=== PATIENT | male | born 1960 | race Caucasian/White ===

== ENCOUNTER → 2018-01-23 | Outpatient (CLI) | payer OTHER ==
--- NOTE | 2018-01-23 12:10 | FL ---
EXAMINATION: Cervical and Thoracic Esophagram DATE OF EXAM: 01/23/2018 CLINICAL INDICATION: 57-year-old male with dysphasia and coughing episodes. COMPARISON: None Total Fluoroscopy Time: 1 minute 8 seconds Total images: 22 FINDINGS: The swallowing mechanism is normal and hypopharyngeal anatomy is preserved. Aspiration is not encount ered during the course of this exam. The cervical and thoracic portions have a normal course and caliber with mild tertiary peristaltic co ntractions. The mucosa is normal and no persistent filling defect is encountered. There is a small hiatal hernia. Gastroesophageal reflux could not be elicited on this exam. IMPRESSION: 1. Small sliding hiatal hernia. 2. No aspiration seen during the course of this exam. If there is clinical concern for aspiration, co nsider speech pathology consultation.
== END | disposition home or self-care (01) ==
LOC: RADFLWHC 08:48
PROVIDERS: ATTEND Family Medicine
DX: K44.9 Diaphragmatic hernia without obstruction or gangrene (principal); T17.308A Unspecified foreign body in larynx causing other injury, initial encounter; T17.908A Unspecified foreign body in respiratory tract, part unspecified causing other injury, initial encounter
CPT/HCPCS: 74210

== ENCOUNTER → 2018-02-05 | Outpatient (CLI) | payer OTHER ==
--- NOTE | 2018-02-05 12:45 | FL ---
Modified barium swallow. HISTORY: Dysphagia. Modified barium swallow was performed with the department of speech pathology. The patient was prese nted with various consistencies of barium. There is no evidence for aspiration or penetration. Full report is to follow from the department of speech pathology. Impression: Normal study.
== END | disposition home or self-care (01) ==
LOC: RADFLMAIN 10:48
PROVIDERS: ATTEND Family Medicine
DX: R13.10 Dysphagia, unspecified (principal)
CPT/HCPCS: 74230

== ENCOUNTER 2018-12-03 08:07 | Day surgery (SDC) | payer OTHER ==
[2018-11-28 11:36] VITALS: BMI 33.0
[~2018-12-03 08:07] MED LIST: LACTATED RINGERS 1,000 ML IV SCH; LIDOCAINE 1% 20 ML VIAL (10MG/ML) FOR IV START INTRADERMA PRN
[2018-12-03 08:24] VITALS: RESP 16; TEMP 97.5
[2018-12-03] MEDS ORDERED: PROPOFOL 10 MG/ML 20 ML VIAL IV ONE (08:38)
[2018-12-03] MEDS ORDERED: fentaNYL (PF) 50 MCG/ML 2 ML AMP ONE (08:38)
[2018-12-03] MEDS ORDERED: MIDAZOLAM 2 MG/2 ML VIAL ONE (08:38)
--- NOTE | 2018-12-03 08:44 | P.GSHP ---
History of Present Illness H&P Date: 12/03/18 Chief Complaint: History of right colon cancer This a 58-year-old male who presents today for colonoscopy. Patient history of right colon cancer. He had surgery in 2009. Past Medical History Past Medical History: Atrial Fibrillation, Asthma, Cancer, GERD/Reflux, Hypertension, Sleep Apnea/CPAP/BIPAP Additional Past Medical History / Comment(s): COLON CANCER HX, chemo 2008. hx gout, neuropathy keshia feet, back pain DDD, USES CPAP History of Any Multi-Drug Resistant Organisms: None Reported Past Surgical History: Bowel Resection, Cardiac Ablation, Orthopedic Surgery Additional Past Surgical History / Comment(s): RT COLECTOMY, RT HYDROCELE REMOVED. PLASTIC SX NOSE, ORIF LT ANKLE with screw. hx PORT A CATH, now removed Past Anesthesia/Blood Transfusion Reactions: No Reported Reaction Smoking Status: Never smoker - Past Family History Father Family Medical History: Cancer, Prostate Disorder Mother Family Medical History: Cancer Medications and Allergies Home Medications Medication Instructions Recorded Confirmed Type Allopurinol 300 mg PO HS 06/05/16 12/03/18 History Aspirin 325 mg PO HS 06/05/16 11/28/18 History Diazepam [Valium] 5 mg PO BID PRN 06/05/16 12/03/18 History Hydrocodone/Acetaminophen [[place] 1 each PO BID 06/05/16 12/03/18 History 10-325] Lansoprazole 30 mg PO HS 06/05/16 12/03/18 History Metoprolol Succinate (ER) [Toprol 12.5 mg PO HS 06/05/16 12/03/18 History Xl] Albuterol Nebulized [Ventolin 2.5 mg INHALATION Q6H PRN 11/28/18 12/03/18 History Nebulized] Beclomethasone Dipropionate [Qvar 1 puff INHALATION DAILY 11/28/18 12/03/18 History 40 mcg Redihaler] Fluticasone/Salmeterol 1 puff INHALATION DAILY 11/28/18 12/03/18 History [Fluticasone-Salmeterol 232-14] Allergies Allergy/AdvReac Type Severity Reaction Status Date / Time No Known Allergies Allergy Verified 11/28/18 11:24 Surgical - Exam Vital Signs Temp Pulse Resp BP Pulse Ox 97.5 F L 57 L 16 134/83 98 12/03/18 08:23 12/03/18 08:23 12/03/18 08:23 12/03/18 08:23 12/03/18 08:23 - General well developed, well nourished, no distress - Eyes PERRL - ENT normal pinna - Neck no masses - Respiratory normal expansion - Cardiovascular Rhythm: regular - Abdomen Abdomen: soft, non tender Assessment and Plan Assessment: History of right colon cancer. We'll perform colonoscopy.
--- NOTE | 2018-12-03 09:00 | P.OP ---
Date of Procedure: 12/03/18 Preoperative Diagnosis: History of right colon cancer Postoperative Diagnosis: Diverticulosis Procedure(s) Performed: Colonoscopy Anesthesia: MAC Surgeon: Clyde Michel Pathology: none sent Condition: stable Disposition: PACU Description of Procedure: The patient's placed on the endoscopy table in the lateral position. He received IV sedation. Digital rectal exam was performed which revealed no abnormalities. The flexible colonoscope was then placed patient anus passed throughout the entire colon. The patient had a previous right collecting. The ileocolonic anastomosis visualized. The transverse colon, descending colon and sigmoid colon were examined. There was diverticular changes in the descending and sigmoid colon. No polyps or tumors were seen. The scope was then brought back the rectum and this appeared normal. Scope was withdrawn for patient.
[2018-12-03 09:15] VITALS: BP 152/93; PULSE 98
== END 2018-12-03 09:30 | disposition home or self-care (01) ==
LOC: ORWHC2ENDO 08:07
PROVIDERS: ATTEND Surgery
DX: Z12.11 Encounter for screening for malignant neoplasm of colon (principal); K57.30 Diverticulosis of large intestine without perforation or abscess without bleeding; Z85.038 Personal history of other malignant neoplasm of large intestine; Z90.49 Acquired absence of other specified parts of digestive tract; K21.9 Gastro-esophageal reflux disease without esophagitis; I10 Essential (primary) hypertension; G62.9 Polyneuropathy, unspecified; M10.9 Gout, unspecified; G89.29 Other chronic pain; J44.9 Chronic obstructive pulmonary disease, unspecified; G47.33 Obstructive sleep apnea (adult) (pediatric); Z99.89 Dependence on other enabling machines and devices; Z79.891 Long term (current) use of opiate analgesic; Z79.82 Long term (current) use of aspirin; Z79.51 Long term (current) use of inhaled steroids; Z79.899 Other long term (current) drug therapy; Z92.21 Personal history of antineoplastic chemotherapy
CPT/HCPCS: J2250; J3010; J2704; G0105; 45378

== ENCOUNTER → 2023-12-17 | Outpatient (CLI) | payer OTHER ==
[2023-12-17 15:07] LABS: Basophils # (A) 0.1 k/uL (0-0.2); Basophils % (A) 1 %; Eosinophils # (A) 0.3 k/uL (0-0.7); Eosinophils % (A) 4 %; HCT 47.9 % (39.0-53.0); Lymphocytes # (A) 2.1 k/uL (1.0-4.8); Lymphocytes % (A) 27 %; MCH 32.6 pg (25.0-35.0); MCHC 33.4 g/dL (31.0-37.0); MCV 97.6 fL (80.0-100.0); Monocytes # (A) 0.5 k/uL (0-1.0); Monocytes % (A) 7 %; Neutrophils # (A) 4.7 k/uL (1.3-7.7); Neutrophils % (A) 61 %; Platelet Count 199 k/uL (150-450); RBC 4.91 m/uL (4.30-5.90); RDW 13.2 % (11.5-15.5); WBC 7.8 k/uL (3.8-10.6)
[2023-12-17 15:29] LABS: Total Eosinophil Count 288 #EOS/uL (150-300)
[2023-12-18 03:03] LABS: Alternaria alternata IgE <0.10 kU/L; Aspergillus fumagatus IgE <0.10 kU/L; Birch IgE <0.10 kU/L; Cat Epith & Dander IgE <0.10 kU/L; Cladosporian herbarum IgE <0.10 kU/L; Cockroach IgE <0.10 kU/L; Dermato. farinae IgE <0.10 kU/L; Dog Dander IgE 0.16 kU/L; Elm IgE <0.10 kU/L; Maple (Box Elder) IgE <0.10 kU/L; Oak IgE <0.10 kU/L; Ragweed,Common IgE 0.15 kU/L; Red Top (Bentgrass) IgE <0.10 kU/L
== END | disposition home or self-care (01) ==
LOC: LABWHC1 14:25
PROVIDERS: ATTEND Internal Medicine Critical Care Medicine
DX: J45.909 Unspecified asthma, uncomplicated (principal)
CPT/HCPCS: 36415; 82785; 85008; 85025; 86003

== ENCOUNTER → 2023-12-24 | Outpatient (CLI) | payer OTHER ==
--- NOTE | 2023-12-24 18:26 | CT ---
EXAMINATION TYPE: CT ChestAbdPelvis w con DATE OF EXAM: 12/24/2023 COMPARISON: 04/10/2016 HISTORY: F/U on colon Ca. CT DLP: 1802.8 mGycm Automated exposure control for dose reduction was used. CONTRAST: CT scan of the chest, abdomen and pelvis is performed with Oral Contrast and with IV Contrast, patien t injected with 100 mL of Isovue 300. FINDINGS: CT chest: There is no suspicious lung mass or nodule. There is no abnormal airspace/consolidative density or abnormal interstitial density. There is no pleural effusion, pleural thickening or pneumothorax. The great vessels and chest are normal there is no mediastinal, hilar or axillary adenopathy. No focal osseous lesions are seen. CT abdomen and pelvis: Gallbladder is normal without distention, pericholecystic fluid, wall thickening or gallstone. There is no biliary ductal dilatation. There is no focal mass or organomegaly involving the liver, pancreas, spleen or adrenal glands.. There is no solid renal mass or hydronephrosis. There is no retroperitoneal adenopathy or hemorrhage in the caliber of the abdominal aorta is normal. The bowel loops are normal in caliber and there is no dilatation or obstruction. No inflammatory castellon ges identified in the bowel wall and mesentery. There is no free intracranial air or fluid. There is no pelvic mass or adenopathy. There is no free fluid within the pelvis. No focal osseous lesions are seen. Soft tissue the abdomen and pelvis are normal. IMPRESSION: No evidence of recurrent or metastatic disease.
== END | disposition home or self-care (01) ==
LOC: RADCTMAIN 14:22
PROVIDERS: ATTEND Internal Medicine Hematology & Oncology
DX: C18.9 Malignant neoplasm of colon, unspecified (principal); G62.0 Drug-induced polyneuropathy; T45.1X5A Adverse effect of antineoplastic and immunosuppressive drugs, initial encounter; D63.0 Anemia in neoplastic disease; G47.31 Primary central sleep apnea; E78.5 Hyperlipidemia, unspecified; K76.0 Fatty (change of) liver, not elsewhere classified; E83.119 Hemochromatosis, unspecified; I82.5Z9 Chronic embolism and thrombosis of unspecified deep veins of unspecified distal lower extremity; I10 Essential (primary) hypertension; Z71.3 Dietary counseling and surveillance
CPT/HCPCS: 71260; 74177; Q9967

== ENCOUNTER → 2024-01-09 | Outpatient (CLI) | payer OTHER ==
[2024-01-09 21:11] LABS: Blood Urea Nitrogen 13.9 mg/dL (9.0-27.0); Chloride 105 mmol/L (96-109); Chol/HDL Ratio 3.27 Ratio; Glucose 95 mg/dL (70-110); LDL Cholesterol,Calculated 127.1 mg/dL (0.0-131.0); Magnesium 2.4 mg/dL (1.5-2.4); Potassium 4.5 mmol/L (3.5-5.5); Sodium 143 mmol/L (135-145); VLDL Calculation 19.98 mg/dL (5.00-40.00)
[2024-01-09 21:12] LABS: ALT 30 U/L (10-49); AST 23 U/L (14-35); Albumin 4.8 g/dL (3.8-4.9); Albumin/Globulin Ratio 2.18 Ratio (1.60-3.17); Alkaline Phosphatase 53 U/L (41-126); Calcium 10.1 mg/dL (8.7-10.3); Carbon Dioxide 24.9 mmol/L (21.6-31.8); Globulin 2.2 g/dL (1.6-3.3); Total Bilirubin 0.7 mg/dL (0.3-1.2)
== END | disposition home or self-care (01) ==
LOC: LABWHC1 13:13
PROVIDERS: ATTEND Internal Medicine Clinical Cardiac Electrophysiology
DX: I48.0 Paroxysmal atrial fibrillation (principal); E78.5 Hyperlipidemia, unspecified
CPT/HCPCS: 36415; 80053; 80061; 83735; 84443

== ENCOUNTER 2024-01-27 14:07 | Inpatient (IN) | payer OTHER ==
--- NOTE | 2024-01-27 14:38 | ED ---
General Adult HPI - General Chief complaint: Shortness of Breath Stated complaint: SOB Time Seen by Provider: 01/27/24 14:15 Source: patient, RN notes reviewed, old records reviewed Mode of arrival: ambulatory Limitations: no limitations - History of Present Illness Initial comments: This is a 63-year-old male who presents to the emergency department complaining of difficulty breathing. Patient states he has a history of asthma. Patient states he gets so short of breath even walking to the bathroom that he cannot do anything. Patient denies chest pain or palpitation. Patient has any recent fever chills but he does complain of an increased cough recently. Patient denies any history of smoking. Patient denies any abdominal pain patient has n ausea vomiting or diarrhea. Patient is swelling to the legs or calf tenderness. - Related Data Home Medications Medication Instructions Recorded Confirmed Hydrocodone/Acetaminophen [[place] 1 tab PO QID 06/05/16 01/27/24 10-325] Metoprolol Succinate (ER) [Toprol 25 mg PO HS 06/05/16 01/27/24 Xl] allopurinoL [Allopurinol] 300 mg PO HS 06/05/16 01/27/24 Albuterol Nebulized [Ventolin 2.5 mg INHALATION RT-QID PRN 11/28/18 01/27/24 Nebulized] Albuterol Sulfate [Ventolin HFA] 1 - 2 puff INHALATION RT-QID PRN 01/27/24 01/27/24 Apixaban [Eliquis] 2.5 mg PO BID 01/27/24 01/27/24 Ergocalciferol (Vitamin D2) 1,250 mcg PO QMONTHLY 01/27/24 01/27/24 [Drisdol (50,000 Iu)] Fluticasone/Umeclidin/Vilanter 1 puff INHALATION RT-DAILY 01/27/24 01/27/24 [Trelegy Ellipta 200-62.5-25] Furosemide [Lasix] 40 mg PO DAILY 01/27/24 01/27/24 Potassium Chloride ER [K-Dur 20] 20 meq PO HS 01/27/24 01/27/24 Triamcinolone 0.1% Cream [Kenalog 1 applicatio TOPICAL HS 01/27/24 01/27/24 0.1% Cream] Allergies Allergy/AdvReac Type Severity Reaction Status Date / Time No Known Allergies Allergy Verified 01/27/24 15:37 Review of Systems ROS Statement: Those systems with pertinent positive or pertinent negative responses have been documented in the HPI. ROS Other: All systems not noted in ROS Statement are negative. Past Medical History Past Medical History: Atrial Fibrillation, Asthma, Cancer, GERD/Reflux, Hypertension, Sleep Apnea/CPAP/BIPAP Additional Past Medical History / Comment(s): COLON CANCER HX, chemo 2009. hx gout, neuropathy keshia feet, back pain DDD, USES CPAP History of Any Multi-Drug Resistant Organisms: None Reported Past Surgical History: Bowel Resection, Cardiac Ablation, Orthopedic Surgery Additional Past Surgical History / Comment(s): RT COLECTOMY, RT HYDROCELE REMOVE D. PLASTIC SX NOSE, ORIF LT ANKLE with screw. hx PORT A CATH, now removed Past Anesthesia/Blood Transfusion Reactions: No Reported Reaction Past Psychological History: No Psychological Hx Reported Past Alcohol Use History: None Reported Past Drug Use History: Marijuana - Past Family History Father Family Medical History: Cancer, Prostate Disorder Mother Family Medical History: Cancer General Exam - General Exam Comments Initial Comments: GENERAL: Patient is well-developed and well-nourished. Patient is nontoxic and well- hydrated and is in mild distress. ENT: Neck is soft and supple. No significant lymphadenopathy is noted. Oropharynx is clear. Moist mucous membranes. Neck has full range of motion without eliciting any pain. EYES: The sclera were anicteric and conjunctiva were pink and moist. Extraocular movements were intact and pupils were equal round and reactive to light. Eyelids were unremarkable. PULMONARY: Patient has expiratory wheezing diffusely CARDIOVASCULAR: Patient is tachycardic at 130 beats a minute and it is a regular. ABDOMEN: Soft and nontender with normal bowel sounds. SKIN: Skin is clear with no lesions or rashes and otherwise unremarkable. NEUROLOGIC: Patient is alert and oriented x3. Cranial nerves II through XII are grossly intact. Motor and sensory are also intact. Normal speech, volume and content. Symmetrical smile. MUSCULOSKELETAL: Normal extremities with adequate strength and full range of motion. LYMPHATICS: No significant lymphadenopathy is noted PSYCHIATRIC: Normal psychiatric evaluation. Limitations: no limitations Course Vital Signs 01/27/24 01/27/24 14:09 15:22 Temperature 98.3 F Pulse Rate 79 123 H Respiratory 26 H 22 Rate Blood Pressure 148/66 128/82 O2 Sat by Pulse 95 94 L Oximetry Medical Decision Making - Medical Decision Making EKG is interpreted by myself. EKG shows atrial fibrillation with rapid ventricular response at a rate of 140 bpm QRS is 136 QT interval 313 QTc is 395. Patient's EKG has a right bundle branch block. Was pt. sent in by a medical professional or institution (, [facility], [employer], urgent care, hospital, or jail...) When possible be specific @ -No Did you speak to anyone other than the patient for history (EMS, parent, family, police, friend...)? What history was obtained from this source @ -No Did you review nursing and triage notes (agree or disagree)? Why? @ -I reviewed and agree with nursing and triage notes Were old charts reviewed (outside hosp., previous admission, EMS record, old EKG, old radiological studies, urgent care reports/EKG's, jail records)? Report findings @ -No old charts were reviewed Differential Diagnosis? @ -Differential Dyspnea: Coronary syndrome, arrhythmia, tamponade, asthma, COPD, pulmonary embolism, pneumonia, pneumothorax, pulmonary effusion, anaphylaxis, diabetic ketoacidosis, flailed chest, pulmonary contusion, diaphragmatic rupture, anemia, neuromuscular, this is not meant to be an all-inclusive list. EKG interpreted by me (3pts min.). @ -As above X-rays interpreted by me (1pt min.). @ -Chest x-ray shows no acute abnormality CT interpreted by me (1pt min.). @ -None done U/S interpreted by me (1pt. min.). @ -None done What testing was considered but not performed or refused? (CT, X-rays, U/S, labs)? Why? @ -None What meds were considered but not given or refused? Why? @ -None Did you discuss the management of the patient with other professionals (professionals i.e. [facility] Medeiros, [employer], lab, RT, psych nurse, community mental health social worker, food and beverage checker, teacher, chairman president and chief executive officer, pillowcase turner)? Give summary @ -I spoke with Dr. Sanchez and he agreed to admit the patient admit the patient wrote admitting orders Was smoking cessation discussed for >3mins.? @ -No Was critical care preformed (if so, how long)? @ -35 minutes Were there social determinants of health that impacted care today? How? (Homelessness, low income, unemployed, alcoholism, drug addiction, transportation, low edu. Level, literacy, decrease access to med. care, prison, rehab)? @ -No Was there de-escalation of care discussed even if they declined (Discuss DNR or withdrawal of care, Hospice)? DNR status @ -No What co-morbidities impacted this encounter? (DM, HTN, Smoking, COPD, CAD, Cancer, CVA, ARF, Chemo, Hep., AIDS, mental health diagnosis, sleep apnea, morbid obesity)? @ -None Was patient admitted / discharged? Hospital course, mention meds given and route, prescriptions, significant lab abnormalities, going to OR and other pertinent info. @ -Patient was in A-fib with rapid ventricular response and I started the patient on Cardizem after Cardizem bolus. Patient also received steroids for the asthma exacerbation and received albuterol and Atrovent treatments. Patient continued to be wheezy and short of breath so patient will be admitted to Dr. Chavira and pulmonary will be consulted as well cardiology Undiagnosed new problem with uncertain prognosis? @ -No Drug Therapy requiring intensive monitoring for toxicity (Heparin, Nitro, Insulin, Cardizem)? @ -No Were any procedures done? @ -No Diagnosis/symptom? @ -A-fib with rapid ventricular response Acute, or Chronic, or Acute on Chronic? @ -Acute Uncomplicated (without systemic symptoms) or Complicated (systemic symptoms)? @ -Complicated Side effects of treatment? @ -No Exacerbation, Progression, or Severe Exacerbation? @ -No Poses a threat to life or bodily function? How? (Chest pain, [place], IA, pneumonia, PE, COPD, DKA, ARF, appy, cholecystitis, CVA, Diverticulitis, Homicidal, Suici rosy, threat to staff... and all critical care pts) @ -Yes this can lead to poor perfusion and endorgan dysfunction Diagnosis/symptom? @ -Asthma exacerbation Acute, or Chronic, or Acute on Chronic? @ -Acute Uncomplicated (without systemic symptoms) or Complicated (systemic symptoms)? @ -Complicated Side effects of treatment? @ - Exacerbation, Progression, or Severe Exacerbation] @ -Severe exacerbation Poses a threat to life or bodily function? @ -Yes this could lead to hypoxia and endorgan dysfunction - Lab Data Result diagrams: 01/27/24 14:36 01/27/24 14:36 Lab Results 01/27/24 01/27/24 01/27/24 Range/Units 14:36 14:36 14:36 WBC 12.2 H (3.8-10.6) k/uL RBC 4.78 (4.30-5.90) m/uL Hgb 16.4 (13.0-17.5) gm/dL Hct 46.0 (39.0-53.0) % MCV 96.2 (80.0-100.0) fL MCH 34.2 (25.0-35.0) pg MCHC 35.6 (31.0-37.0) g/dL RDW 13.5 (11.5-15.5) % Plt Count 195 (150-450) k/uL MPV 7.6 Neutrophils % 69 % Lymphocytes % 15 % Monocytes % 6 % Eosinophils % 8 % Basophils % 1 % Neutrophils # 8.5 H (1.3-7.7) k/uL Lymphocytes # 1.8 (1.0-4.8) k/uL Monocytes # 0.7 (0-1.0) k/uL Eosinophils # 0.9 H (0-0.7) k/uL Basophils # 0.1 (0-0.2) k/uL PT 10.9 (10.0-12.5) sec INR 1.0 (<1.2) APTT 24.9 (22.0-30.0) sec Sodium 140 (137-145) mmol/L Potassium 4.1 (3.5-5.1) mmol/L Chloride 106 (98-107) mmol/L Carbon Dioxide 21 L (22-30) mmol/L Anion Gap 13 mmol/L BUN 17 (9-20) mg/dL Creatinine 0.81 (0.66-1.25) mg/dL Est GFR (CKD-EPI)AfAm >90 (>60 ml/min/1.73 sqM) Est GFR (CKD-EPI)NonAf >90 (>60 ml/min/1.73 sqM) Glucose 97 (74-99) mg/dL Plasma Lactic Acid Srikanth (0.7-2.0) mmol/L Calcium 10.1 (8.4-10.2) mg/dL Magnesium 1.8 (1.6-2.3) mg/dL Total Bilirubin 1.1 (0.2-1.3) mg/dL AST 31 (17-59) U/L ALT 23 (4-49) U/L Alkaline Phosphatase 57 (38-126) U/L Troponin I (0.000-0.034) ng/mL NT-Pro-B Natriuret Pep pg/mL Total Protein 7.6 (6.3-8.2) g/dL Albumin 5.0 (3.5-5.0) g/dL 01/27/24 01/27/24 01/27/24 Range/Units 14:36 14:36 14:36 WBC (3.8-10.6) k/uL RBC (4.30-5.90) m/uL Hgb (13.0-17.5) gm/dL Hct (39.0-53.0) % MCV (80.0-100.0) fL MCH (25.0-35.0) pg MCHC (31.0-37.0) g/dL RDW (11.5-15.5) % Plt Count (150-450) k/uL MPV Neutrophils % % Lymphocytes % % Monocytes % % Eosinophils % % Basophils % % Neutrophils # (1.3-7.7) k/uL Lymphocytes # (1.0-4.8) k/uL Monocytes # (0-1.0) k/uL Eosinophils # (0-0.7) k/uL Basophils # (0-0.2) k/uL PT (10.0-12.5) sec INR (<1.2) APTT (22.0-30.0) sec Sodium (137-145) mmol/L Potassium (3.5-5.1) mmol/L Chloride (98-107) mmol/L Carbon Dioxide (22-30) mmol/L Anion Gap mmol/L BUN (9-20) mg/dL Creatinine (0.66-1.25) mg/dL Est GFR (CKD-EPI)AfAm (>60 ml/min/1.73 sqM) Est GFR (CKD-EPI)NonAf (>60 ml/min/1.73 sqM) Glucose (74-99) mg/dL Plasma Lactic Acid Srikanth 3.2 H* (0.7-2.0) mmol/L Calcium (8.4-10.2) mg/dL Magnesium (1.6-2.3) mg/dL Total Bilirubin (0.2-1.3) mg/dL AST (17-59) U/L ALT (4-49) U/L Alkaline Phosphatase (38-126) U/L Troponin I <0.012 (0.000-0.034) ng/mL NT-Pro-B Natriuret Pep 137 pg/mL Total Protein (6.3-8.2) g/dL Albumin (3.5-5.0) g/dL Critical Care Time Critical Care Time: Yes Total Critical Care Time: 30 Disposition Clinical Impression: Atrial fibrillation with rapid ventricular response, Exacerbation of asthma Disposition: ADMITTED IP TO THIS HOSP Referrals: Thomas Chavira MD [Primary Care Provider] - 1-2 days Time of Disposition: 15:58
[2024-01-27] MEDS: MAGNESIUM SULFATE-D5W PMX 1 GM in DEXTROSE/WATER 1 100ML.BAG IVPB ONE (14:46)
[2024-01-27] MEDS: methylPREDNISolone SOD SUCCI 125 MG/2 ML VIAL IV STA (14:47)
[2024-01-27 14:53] LABS: Basophils # (A) 0.1 k/uL (0-0.2); Basophils % (A) 1 %; Eosinophils # (A) 0.9 k/uL (0-0.7); Eosinophils % (A) 8 %; HGB 16.4 gm/dL (13.0-17.5); Lymphocytes # (A) 1.8 k/uL (1.0-4.8); Lymphocytes % (A) 15 %; MCH 34.2 pg (25.0-35.0); MCHC 35.6 g/dL (31.0-37.0); MCV 96.2 fL (80.0-100.0); Mean Platelet Volume 7.6; Monocytes # (A) 0.7 k/uL (0-1.0); Monocytes % (A) 6 %; Neutrophils # (A) 8.5 k/uL (1.3-7.7); Neutrophils % (A) 69 %; Platelet Count 195 k/uL (150-450); RBC 4.78 m/uL (4.30-5.90); RDW 13.5 % (11.5-15.5); WBC 12.2 k/uL (3.8-10.6)
[2024-01-27 14:54] LABS: Partial Thromboplastin Time 24.9 sec (22.0-30.0); Prothrombin Time 10.9 sec (10.0-12.5)
[2024-01-27 14:58] LABS: ALT 23 U/L (4-49); AST 31 U/L (17-59); African American GFR (CKD) >90 (>60 ml/min/1.73 sqM); Alkaline Phosphatase 57 U/L (38-126); Anion Gap 13 mmol/L; Blood Urea Nitrogen 17 mg/dL (9-20); Calcium 10.1 mg/dL (8.4-10.2); Carbon Dioxide 21 mmol/L (22-30); Chloride 106 mmol/L (98-107); Glucose 97 mg/dL (74-99); Magnesium 1.8 mg/dL (1.6-2.3); Non-African American GFR(CKD) >90 (>60 ml/min/1.73 sqM); Potassium 4.1 mmol/L (3.5-5.1); Sodium 140 mmol/L (137-145); Total Bilirubin 1.1 mg/dL (0.2-1.3); Total Protein 7.6 g/dL (6.3-8.2)
[2024-01-27] MEDS: DILTIAZEM DRIP BOLUS FROM BAG 1 MG SOLN IV ONE (15:19)
[2024-01-27] MEDS: DILTIAZEM 125 MG in SODIUM CHLORIDE 0.9% 100 ML IV SCH (15:19)
[2024-01-27] MEDS: ALBUTEROL NEBULIZED 2.5 MG/3 ML INHALATION STA (15:54)
[2024-01-27] MEDS: IPRATROPIUM 0.5 MG/2.5 ML NEBU INHALATION STA (15:54)
--- NOTE | 2024-01-27 15:57 | XR ---
EXAMINATION TYPE: XR chest 2V DATE OF EXAM: 01/27/2024 3:43 PM CLINICAL INDICATION:Male, 63 years old with history of difficulty breathing; [facility] COMPARISON: Chest radiographs from 11/15/2010 TECHNIQUE: XR chest 2V Frontal view of the chest. FINDINGS: Lungs/Pleura: There is flattening of the diaphragm with increased lucency of the lungs. No evidence o f pneumothorax, pleural effusion or focal consolidation. Pulmonary vascularity: Unremarkable. Heart/mediastinum: Cardiomediastinal silhouette is unremarkable. Musculoskeletal: No acute osseous pathology. IMPRESSION: 1. No acute cardiopulmonary disease process. 2. COPD changes.
[2024-01-27] MEDS ORDERED: NALOXONE 0.4 MG/ML 1 ML VIAL IVP PRN (15:59)
[2024-01-27] MEDS: IPRATROPIUM-ALBUTEROL 3 ML NEB INHALATION SCH (16:23)
[2024-01-27] MEDS: BENZONATATE 100 MG CAP PO STA (16:29)
[2024-01-27] MEDS: MORPHINE SULFATE 2 MG/ML SYRINGE IVP STA (16:30)
[2024-01-27] MEDS: HEPARIN SODIUM 1,000 UN/ML (10ML VL) IV ONE (17:00)
[2024-01-27] MEDS: HEPARIN SOD,PORK IN 0.45% NACL 25,000 UNIT in 0.45% NACL 1 250ML.BAG IV SCH (17:00)
[2024-01-27] MEDS: methylPREDNISolone SOD SUCCI 125 MG/2 ML VIAL IV SCH (19:58)
[2024-01-27] MEDS ORDERED: LIDOCAINE/EPINEPHR/TETRACAINE 5 ML BOTTLE TOPICAL ONE (22:28)
[2024-01-27] MEDS: HEPARIN SODIUM 1,000 UN/ML (10ML VL) IV PRN (23:23)
[2024-01-28] MEDS: IPRATROPIUM-ALBUTEROL 3 ML NEB INHALATION PRN (00:49)
[2024-01-28] MEDS: HYDROcodone/APAP 10-325MG 1 EACH TAB PO SCH (08:16)
[2024-01-28] MEDS: FUROSEMIDE 40 MG TAB PO SCH (08:16)
[2024-01-28] MEDS: METOPROLOL SUCCINATE (ER) 50 MG TAB.ER.24H PO SCH (08:19)
[2024-01-28] MEDS: APIXABAN 5 MG TAB PO SCH (08:19)
[2024-01-28] MEDS ORDERED: APIXABAN 2.5 MG TABLET PO SCH (09:00)
[2024-01-28] MEDS ORDERED: METOPROLOL SUCCINATE (ER) 25 MG TAB.ER.24H PO SCH ×2 (09:00→21:00)
[2024-01-28 10:21] LABS: T4, Free (Free Thyroxine) 1.77 ng/dL (0.78-2.19)
--- NOTE | 2024-01-28 13:27 | P.CRDCN ---
History of Present Illness Consult date: 01/28/24 Consult reason: atrial fibrillation (With RVR) History of present illness: This is a 63-year-old male patient of Dr. Connor with past medical history of typical atrial flutter status post ablation, paroxysmal atrial fibrillation, right bundle branch block, history of colon cancer now in remission, asthma. We have been asked to evaluate the patient for A-fib with RVR. Patient is seen today in the emergency center waiting for bed on the cardiac stepdown unit. Patient states that he has had problems with shortness of breath as well as exa cerbations and probably should have been in the hospital multiple times but has been resistant to coming into the hospital. His main concern is shortness of breath which is better now. No chest pain. Patient was started on heparin drip and Cardizem drip. His heart rate is controlled at 96, blood pressure 131/84. He remains in atrial fibrillation. EKG: Atrial fibrillation at 140 bpm. Patient is currently in atrial fibrillation with ventricular rate of 90s. Chest x-ray: No acute process. COPD. Laboratory studies: Troponin negative x 1 Home cardiac medications: Eliquis 2.5 mg twice daily, Lasix 40 mg daily, metoprolol succinate 25 mg daily, potassium chloride 20 mEq daily. Echocardiogram from 2012 reveals normal LV size and function. Trace mitral regurgitation, mild tricuspid regurgitation. Cardiolite stress test performed in 2012 was nondiagnostic secondary to baseline EKG abnormality. Normal myocardial perfusion imaging with fixed inferior wall defect and normal gated SPECT images consistent with soft tissue attenuation. No evidence of stress induced ischemia. Review Of Systems: At the time of my exam: CONSTITUTIONAL: Denies fever or chills. HEENT: Denies blurred vision, vision changes, or eye pain. Denies hemoptysis CARDIOVASCULAR: Denies chest pain. Denies orthopnea. Denies PND. Denies palpitations RESPIRATORY: Reports dyspnea on exertion, reports shortness of breath. GASTROINTESTINAL: Denies abdominal pain. Denies nausea or vomiting. HEMATOLOGIC: Denies bleeding disorders. GENITOURINARY: Denies any blood in urine. SKIN: Denies puritis. Denies rash. Physical examination: Gen: This is a 63-year-old male in no acute distress VS: reviewed HEENT: Head is atraumatic, normocephalic. Pupils equal, round. Sclerae is anicteric. NECK: Supple. No JVD. LUNGS: Clear to auscultation. No wheezes or rhonchi. No intercostal retractions. HEART: Irregular rate and rhythm. No murmur. ABDOMEN: Soft No tenderness. EXTREMITIES: No pedal edema. No calf tenderness. NEUROLOGICAL: Patient is awake, alert and oriented x3. Assessment: Paroxysmal atrial fibrillation presenting with RVR, currently rate controlled Asthma Atrial flutter typical status post ablation History of colon cancer in remission Plan: Resume patient's home cardiac medications Start patient back on Eliquis at 5 mg twice daily Increase metoprolol succinate to 50 mg daily Discontinue heparin drip and Cardizem drip Obtain 2-D echocardiogram and Doppler study to assess cardiac structure and func tion Further recommendations to follow based upon clinical course Thank you kindly for this consultation. Nurse practitioner note has been reviewed, I agree with documented findings and plan of care. Patient was seen and examined. Past Medical History Past Medical History: Atrial Fibrillation, Asthma, Cancer, GERD/Reflux, Hypertension, Sleep Apnea/CPAP/BIPAP Additional Past Medical History / Comment(s): COLON CANCER HX, chemo 2008. hx gout, neuropathy keshia feet, back pain DDD, USES CPAP History of Any Multi-Drug Resistant Organisms: None Reported Past Surgical History: Bowel Resection, Cardiac Ablation, Orthopedic Surgery Additional Past Surgical History / Comment(s): RT COLECTOMY, RT HYDROCELE REMOVED. PLASTIC SX NOSE, ORIF LT ANKLE with screw. hx PORT A CATH, now removed Past Anesthesia/Blood Transfusion Reactions: No Reported Reaction Past Psychological History: No Psychological Hx Reported Past Alcohol Use History: None Reported Past Drug Use History: Marijuana - Past Family History Father Family Medical History: Cancer, Prostate Disorder Mother Family Medical History: Cancer Medications and Allergies Home Medications Medication Instructions Recorded Confirmed Type Hydrocodone/Acetaminophen [[place] 1 tab PO QID 06/05/16 01/27/24 History 10-325] Metoprolol Succinate (ER) [Toprol 25 mg PO HS 06/05/16 01/27/24 History Xl] allopurinoL [Allopurinol] 300 mg PO HS 06/05/16 01/27/24 History Albuterol Nebulized [Ventolin 2.5 mg INHALATION RT-QID PRN 11/28/18 01/27/24 History Nebulized] Albuterol Sulfate [Ventolin HFA] 1 - 2 puff INHALATION RT-QID PRN 01/27/24 01/27/24 History Apixaban [Eliquis] 2.5 mg PO BID 01/27/24 01/27/24 History Ergocalciferol (Vitamin D2) 1,250 mcg PO QMONTHLY 01/27/24 01/27/24 History [Drisdol (50,000 Iu)] Fluticasone/Umeclidin/Vilanter 1 puff INHALATION RT-DAILY 01/27/24 01/27/24 History [Trelegy Ellipta 200-62.5-25] Furosemide [Lasix] 40 mg PO DAILY 01/27/24 01/27/24 History Potassium Chloride ER [K-Dur 20] 20 meq PO HS 01/27/24 01/27/24 History Triamcinolone 0.1% Cream [Kenalog 1 applicatio TOPICAL HS 01/27/24 01/27/24 History 0.1% Cream] Allergies Allergy/AdvReac Type Severity Reaction Status Date / Time No Known Allergies Allergy Verified 01/27/24 15:37 Physical Exam Vitals: Vital Signs Temp Pulse Resp BP Pulse Ox FiO2 01/28/24 06:00 96 24 131/84 97 01/28/24 04:15 21 01/28/24 03:00 102 H 24 148/89 97 01/28/24 01:00 116 H 01/28/24 00:50 115 H 01/27/24 23:47 21 01/27/24 23:00 104 H 18 154/99 97 01/27/24 21:30 100 01/27/24 21:15 112 H 01/27/24 21:00 96 01/27/24 20:45 93 01/27/24 20:30 101 H 01/27/24 19:32 95 01/27/24 19:30 93 01/27/24 19:22 95 01/27/24 17:38 144/102 01/27/24 16:28 130/92 01/27/24 16:06 112 H 01/27/24 15:55 106 H 01/27/24 15:22 123 H 22 128/82 94 L 01/27/24 14:09 98.3 F 79 26 H 148/66 95 Intake and Output 01/27/24 01/28/24 01/28/24 22:59 06:59 14:59 Intake Total 154.101 Balance 154.101 Intake: Intake, IV Titration 154.101 Amount Heparin Sod,Pork in 0.45% 154.101 NaCl 25,000 unit In 0.45 % NaCl 1 250ml.bag @ 9.8 UNITS/KG/HR 10.002 mls/hr IV .Q24H [facility] Rx#: [id number] Results 01/27/24 14:36 01/27/24 14:36 Cardiac Enzymes 01/27/24 01/27/24 Range/Units 14:36 14:36 AST 31 (17-59) U/L Troponin I <0.012 (0.000-0.034) ng/mL Coagulation 01/27/24 01/27/24 01/28/24 Range/Units 14:36 21:23 05:53 PT 10.9 (10.0-12.5) sec APTT 24.9 40.9 H 54.2 H (22.0-30.0) sec CBC 01/27/24 Range/Units 14:36 WBC 12.2 H (3.8-10.6) k/uL RBC 4.78 (4.30-5.90) m/uL Hgb 16.4 (13.0-17.5) gm/dL Hct 46.0 (39.0-53.0) % Plt Count 195 (150-450) k/uL Comprehensive Metabolic Panel 01/27/24 Range/Units 14:36 Sodium 140 (137-145) mmol/L Potassium 4.1 (3.5-5.1) mmol/L Chloride 106 (98-107) mmol/L Carbon Dioxide 21 L (22-30) mmol/L BUN 17 (9-20) mg/dL Creatinine 0.81 (0.66-1.25) mg/dL Glucose 97 (74-99) mg/dL Calcium 10.1 (8.4-10.2) mg/dL AST 31 (17-59) U/L ALT 23 (4-49) U/L Alkaline Phosphatase 57 (38-126) U/L Total Protein 7.6 (6.3-8.2) g/dL Albumin 5.0 (3.5-5.0) g/dL Current Medications Generic Name Dose Route Start Last Admin Trade Name Freq PRN Reason Stop Dose Admin Albuterol/Ipratropium 3 ml 01/27/24 16:00 01/27/24 19:22 Ipratropium-Albuterol 3 Ml Neb INHALATION 3 ml RT-QID JESSICA Administration Albuterol/Ipratropium 3 ml 01/27/24 15:59 01/28/24 00:49 Ipratropium-Albuterol 3 Ml Neb INHALATION 3 ml RT-Q2H PRN Administration Shortness Of Breath Or Wheezing Heparin Sodium (Porcine) 0 unit 01/27/24 23:02 01/27/24 23:23 Heparin Sodium 1,000 Un/Ml (10ml Vl) IV 2,550 unit PER PROTOCOL PRN Administration Low PTT Protocol Diltiazem HCl 125 mg/ Sodium 125 mls @ 5 mls/hr 01/27/24 15:00 01/27/24 15:19 Chloride IV 5 mg/hr .Q24H JESSICA 5 mls/hr Administration 5 MG/HR Heparin Sodium/Sodium Chloride 250 mls @ 10.002 mls/hr 01/27/24 16:15 01/28/24 06:53 25,000 unit/ Sodium Chloride IV 11.8 units/kg/hr .Q24H JESSICA 12.043 mls/hr Titration Protocol 9.8 UNITS/KG/HR Methylprednisolone Sodium Succinate 60 mg 01/27/24 18:00 01/28/24 06:12 Methylprednisolone Sod Succi 125 Mg/2 Ml Vial IV 60 mg Q6HR JESSICA Administration Morphine Sulfate 2 mg 01/27/24 16:24 Morphine Sulfate 2 Mg/Ml Syringe IVP Q6HR PRN Pain/Discomfort Naloxone HCl 0.2 mg 01/27/24 15:59 Naloxone 0.4 Mg/Ml 1 Ml Vial IVP Q2M PRN Opioid Reversal Intake and Output 01/27/24 01/28/24 01/28/24 22:59 06:59 14:59 Intake Total 154.101 Balance 154.101 Intake: Intake, IV Titration 154.101 Amount Heparin Sod,Pork in 0.45% 154.101 NaCl 25,000 unit In 0.45 % NaCl 1 250ml.bag @ 9.8 UNITS/KG/HR 10.002 mls/hr IV .Q24H JESSICA Rx#: [id number] 01/27/24 14:36 01/27/24 14:36
--- NOTE | 2024-01-28 15:35 | P.CNPUL ---
History of Present Illness Consult date: 01/28/24 Requesting physician: Thomas Chavira Reason for consult: dyspnea Chief complaint: shortness of breath History of present illness: This is a 63 year old male patient with past medical history of paroxysmal atrial fibrillation with a rapid ventricular rate, atrial flutter s/p ablation, right bundle branch block, asthma, colon cancer now in remission with chemotherapy in 2008 and a right colectomy, GERD, hypertension, sleep apnea, gout, right hydrocele that was removed. He presented to the ED yesterday(01/27/24) complaining of difficulty breathing and getting short of breath even walking to the bathroom. He is currently on 2 L of oxygen and is feeling better now. Patient states has a history of asthma. He was managed with Trelegy 200mcg, Ventolin and albuterol 50mcg. Patient complains of increased cough recently. He was started on heparin drip and a Cardizem drip 5mg/hr. He denies chest pain, palpitation or fever. He has a past medical history of GERD but denies any abdominal pain, nausea, vomiting or diarrhea today. Denies history of smoking. His hemoglobin is 16.4, WBC 12.2, platelets 192, sodium 140, potassium 4.1, BUN 17, creatinine 1.81. His chest x-ray is normal. He is hemodynamically stable. Review of Systems Constitutional: Denies any recent significant weight loss or weight gain Eyes: Denies change in vision Ears, Nose, Mouth, Throat: Denies headaches, denies sore throat Cardiovascular: Denies chest pain, palpitations, or syncopal episodes Respiratory: Positive for shortness of breath, cough, mucus production Gastrointestinal: Denies changes in the appetite, denies abdominal pain Genitourinary: Denies hematuria, denies infections Musculoskeletal:No deformities Integumentary: Denies rash, denies eczema Neurological: Denies recent memory loss, no recent seizure activity Psychiatric: Denies anxiety, denies depression Hematologic or lymphatic: denies anemia, denies enlarged lymph nodes Past Medical History Past Medical History: Atrial Fibrillation, Asthma, Cancer, GERD/Reflux, Hy pertension, Sleep Apnea/CPAP/BIPAP Additional Past Medical History / Comment(s): COLON CANCER HX, chemo 2008. hx gout, neuropathy keshia feet, back pain DDD, USES CPAP History of Any Multi-Drug Resistant Organisms: None Reported Past Surgical History: Bowel Resection, Cardiac Ablation, Orthopedic Surgery Additional Past Surgical History / Comment(s): RT COLECTOMY, RT HYDROCELE REMOVED. PLASTIC SX NOSE, ORIF LT ANKLE with screw. hx PORT A CATH, now removed Past Anesthesia/Blood Transfusion Reactions: No Reported Reaction Past Psychological History: No Psychological Hx Reported Past Alcohol Use History: None Reported Past Drug Use History: Marijuana - Past Family History Father Family Medical History: Cancer, Prostate Disorder Mother Family Medical History: Cancer Medications and Allergies Home Medications Medication Instructions Recorded Confirmed Type Hydrocodone/Acetaminophen [[place] 1 tab PO QID 06/05/16 01/27/24 History 10-325] Metoprolol Succinate (ER) [Toprol 25 mg PO HS 06/05/16 01/27/24 History Xl] allopurinoL [Allopurinol] 300 mg PO HS 06/05/16 01/27/24 History Albuterol Nebulized [Ventolin 2.5 mg INHALATION RT-QID PRN 11/28/18 01/27/24 History Nebulized] Albuterol Sulfate [Ventolin HFA] 1 - 2 puff INHALATION RT-QID PRN 01/27/24 01/27/24 History Apixaban [Eliquis] 2.5 mg PO BID 01/27/24 01/27/24 History Ergocalciferol (Vitamin D2) 1,250 mcg PO QMONTHLY 01/27/24 01/27/24 History [Drisdol (50,000 Iu)] Fluticasone/Umeclidin/Vilanter 1 puff INHALATION RT-DAILY 01/27/24 01/27/24 History [Trelegy Ellipta 200-62.5-25] Furosemide [Lasix] 40 mg PO DAILY 01/27/24 01/27/24 History Potassium Chloride ER [K-Dur 20] 20 meq PO HS 01/27/24 01/27/24 History Triamcinolone 0.1% Cream [Kenalog 1 applicatio TOPICAL HS 01/27/24 01/27/24 History 0.1% Cream] Allergies Allergy/AdvReac Type Severity Reaction Status Date / Time No Known Allergies Allergy Verified 01/27/24 15:37 Physical Exam Vitals: Vital Signs Pulse Resp BP Pulse Ox FiO2 01/28/24 13:41 102 H 20 128/97 96 01/28/24 12:34 98 01/28/24 12:24 95 01/28/24 10:07 107 H 18 140/84 96 01/28/24 09:01 112 H 01/28/24 08:49 106 H 98 01/28/24 06:00 96 24 131/84 97 01/28/24 04:15 21 01/28/24 03:00 102 H 24 148/89 97 01/28/24 01:00 116 H 01/28/24 00:50 115 H 01/27/24 23:47 21 01/27/24 23:00 104 H 18 154/99 97 01/27/24 21:30 100 01/27/24 21:15 112 H 01/27/24 21:00 96 01/27/24 20:45 93 01/27/24 20:30 101 H 01/27/24 19:32 95 01/27/24 19:30 93 01/27/24 19:22 95 01/27/24 17:38 144/102 01/27/24 16:28 130/92 01/27/24 16:06 112 H 01/27/24 15:55 106 H 01/27/24 15:22 123 H 22 128/82 94 L Intake and Output 01/27/24 01/28/24 01/28/24 22:59 06:59 14:59 Intake Total 154.101 Balance 154.101 Intake: Intake, IV Titration 154.101 Amount Heparin Sod,Pork in 0.45% 154.101 NaCl 25,000 unit In 0.45 % NaCl 1 250ml.bag @ 9.8 UNITS/KG/HR 10.002 mls/hr IV .Q24H [facility] Rx#: [id number] General: Alert 63-year-old male, 2 litres O2, well-developed and well-nourished. Patient is nontoxic and well-hydrated and is in no acute distress. Head: Normocephalic ENT: Neck is soft and supple. Moist mucous membrane. Eyes: Sclerae were anicteric and conjunctivae were pink and moist. Pupils are round and equally reacting to light. Neck: No masses, no JVD Pulmonary: Patient has expiratory wheezing. Cardiovascular: Normal S1-S2, no S3 gallop, no murmur. Abdomen: Soft and nontender, no hepatosplenomegaly, no guarding or rigidity Skin: Skin is clear with no lesions or rashes. Neurologic: Patient is alert and oriented x 3 Musculoskeletal: Normal extremities Spine: No scoliosis or deformity Results - Laboratory Findings CBC and BMP: 01/27/24 14:36 01/27/24 14:36 PT/INR, D-dimer PT 10.9 sec (10.0-12.5) 01/27/24 14:36 INR 1.0 (<1.2) 01/27/24 14:36 Abnormal lab findings: Abnormal Labs 01/27/24 01/27/24 01/27/24 14:36 14:36 14:36 WBC 12.2 H Neutrophils # 8.5 H Eosinophils # 0.9 H APTT Carbon Dioxide 21 L Plasma Lactic Acid Srikanth 3.2 H* TSH 01/27/24 01/27/24 01/28/24 17:51 21:23 05:53 WBC Neutrophils # Eosinophils # APTT 40.9 H 54.2 H Carbon Dioxide Plasma Lactic Acid Srikanth 3.9 H* TSH 01/28/24 05:53 WBC Neutrophils # Eosinophils # APTT Carbon Dioxide Plasma Lactic Acid Srikanth TSH 0.260 L Assessment and Plan Assessment: Acute hypoxemic respiratory failure due to acute exacerbation of asthma Paroxysmal atrial fibrillation with RVR, currently rate controlled Atrial flutter typical s/p ablation History of colon cancer in remission, chemotherapy in 2008 and right colectomy Hypertension Plan: 2 Litres O2 DuoNeb 0.5 mg to 3 mg per 3 mL solution Solu-Medrol 60 mg IV every 6 hours Pulmicort 1 mg inhalation Perforomist 20 mcg inhalation Eliquis 5 mg p.o. twice daily Lasix 40 mg p.o. daily Metoprolol 50 mg p.o. daily Time with Patient: Less than 30 (20 minutes spent on the visit)
[2024-01-28 16:47] LABS: Glucose,Whole Blood 142 mg/dL (70-110)
[2024-01-28] MEDS: POTASSIUM CHLORIDE ER 20 MEQ TAB.ER PO SCH (19:54)
[2024-01-28 20:07] LABS: Glucose,Whole Blood 162 mg/dL (70-110)
[2024-01-28] MEDS: BUDESONIDE 1 MG/2 ML NEBU INHALATION SCH (21:06)
[2024-01-28] MEDS: FORMOTEROL FUMARATE 20 MCG/2 ML NEBU INHALATION SCH (21:06)
--- NOTE | 2024-01-28 23:09 | HP ---
HISTORY AND PHYSICAL CHIEF COMPLAINT: Difficulty breathing. HISTORY OF PRESENT ILLNESS: This is another admission for this 63-year-old white male who presented to the emergency room with shortness of breath. He does have problems with asthma and this was thought to be the leading contributor. He denies any chest pain or palpitations. He does have atrial fibrillation, however. He has had no fever, chills, etc. REVIEW OF SYSTEMS: Otherwise unremarkable. Past medical history, family history, personal and social histories reveal that he is not allergic to any medication. MEDICATIONS: He takes, 1. Montelukast. 2. Cyclobenzaprine. 3. Metoprolol. 4. Trelegy. 5. Eliquis. 6. Potassium. 7. Lasix. 8. Vicodin. He does not smoke and never has. PHYSICAL EXAMINATION: VITAL SIGNS: Normal. He is in atrial fibrillation. HEAD, EARS, EYES, NOSE, MOUTH, AND THROAT: Normal. CHEST: Demonstrated decreased breath sounds with scattered rales and occasional wheezing. CARDIAC: Demonstrated atrial fibrillation. ABDOMEN: Soft and slightly protuberant and nontender. EXTREMITIES: Normal. IMPRESSION: 1. Acute respiratory distress. 2. Status asthmaticus. 3. Reactive airway disease. 4. Atrial fibrillation. PLAN: 1. Bed rest. 2. IV fluids. 3. Updrafts. 4. IV and inhaled steroids. 5. Consult Cardiology and Pulmonology. MMODL / IJN: [id number] /
--- NOTE | 2024-01-29 02:58 | PN ---
PROGRESS NOTE CHIEF COMPLAINT: Shortness of breath, asthma, and atrial fibrillation. HISTORY OF PRESENT ILLNESS: This gentleman is doing a little bit better. He is less short of breath. PHYSICAL EXAMINATION: CHEST: Quite clear. There is no wheezing. There are no rales or rhonchi. CARDIAC: Normal other than his atrial fibrillation. ABDOMEN: Soft, nontender. IMPRESSION: 1. Shortness of breath. 2. Asthmatic bronchitis. 3. Atrial fibrillation. PLAN: Continue workup and he will be moved to floor when a bed is available. MMODL / IJN: [id number] /
[2024-01-29 06:02] LABS: Glucose,Whole Blood 133 mg/dL (70-110)
[2024-01-29] MEDS: PANTOPRAZOLE 40 MG TABLET PO SCH ×2 (08:27→17:18)
[2024-01-29 11:46] LABS: Glucose,Whole Blood 123 mg/dL (70-110)
[2024-01-29] MEDS: guaiFENesin 600 MG TABLET.ER PO SCH (11:51)
[2024-01-29] MEDS: NYSTATIN 100,000 UNIT/GM POWD 15 GM TOPICAL SCH (11:51)
--- NOTE | 2024-01-29 12:10 | P.PN ---
Subjective Progress Note Date: 01/29/24 Principal diagnosis: This is a 63 year old male patient with past medical history of paroxysmal atrial fibrillation with a rapid ventricular rate, atrial flutter s/p ablation, right bundle branch block, asthma, colon cancer now in remission with chemotherapy in 2008 and a right colectomy, GERD, hypertension, sleep apnea, gout, right hydrocele that was removed. He presented to the ED yesterday(01/27/24) complaining of difficulty breathing and getting short of breath even walking to the bathroom. He is currently on 2 L of oxygen and is feeling better now. Patient states has a history of asthma. He was managed with Trelegy 200mcg, Ventolin and albuterol 50mcg. Patient complains of increased cough recently. He was started on heparin drip and a Cardizem drip 5mg/hr. He denies chest pain, palpitation or fever. He has a past medical history of GERD but denies any abdominal pain, nausea, vomiting or diarrhea today. Denies history of smoking. His hemoglobin is 16.4, WBC 12.2, platelets 192, sodium 140, potassium 4.1, BUN 17, creatinine 1.81. His chest x-ray is normal. He is hemodynamically stable. Progress note 01/29/2024. Patient was evaluated today and is feeling much better. He is able to get up and go to the bathroom without getting short of breath. His O2 sat is 98 on room air. Does complain of cough and dark green sticky phlegm production. He also complains of burning in the throat and his tongue appears a little white. Hence he has been given nystatin swish and swallow. He is also put on Mucinex 1200 mg, Mycostatin powder and oral suspension. He is currently on apixaban 5 mg, budesonide 1 mg, formoterol 20 mcg, furosemide 40 mg and metoprolol 50 mg. He denies any chest pain, fever, chills, abdominal pain, nausea, vomiting and diarrhea. He is hemodynamically stable. Objective - Vital Signs Vital signs: Vital Signs Temp 98.5 F 01/29/24 08:00 Pulse 111 H 01/29/24 11:40 Resp 18 01/29/24 11:40 BP 131/68 01/29/24 08:00 Pulse Ox 95 01/29/24 08:31 FiO2 21 01/29/24 03:18 Intake & Output 01/28/24 01/29/24 01/29/24 18:59 06:59 18:59 Intake Total 750 0 358 Balance 750 0 358 Weight 102.058 kg 97.1 kg Intake: IV 0 0 Invasive Line 1 0 0 Oral 750 358 Other: Voiding Method Toilet Toilet Toilet # Voids 1 2 - Exam General: Alert 63-year-old male, well-developed and well-nourished. Patient is nontoxic and well-hydrated and is in no acute distress. Head: Normocephalic HEENT: Neck is soft and supple. Moist mucous membrane. Whitish tongue. Eyes: Sclerae were anicteric and conjunctivae were pink and moist. Pupils are round and equally reacting to light. Neck: No masses, no JVD Pulmonary: Patient has expiratory wheezing. Cardiovascular: Normal S1-S2, no S3 gallop, no murmur. Abdomen: Soft and nontender, no hepatosplenomegaly, no guarding or rigidity Skin: Skin is clear with no lesions or rashes. Neurologic: Patient is alert and oriented x 3 Musculoskeletal: Normal extremities Spine: No scoliosis or deformity - Labs CBC & Chem 7: 01/27/24 14:36 01/27/24 14:36 Labs: Abnormal Lab Results - Last 24 Hours (Table) 01/28/24 01/28/24 01/29/24 Range/Units 16:43 20:06 06:01 POC Glucose (mg/dL) 142 H 162 H 133 H (70-110) mg/dL Microbiology - Last 24 Hours (Table) 01/27/24 15:00 Blood Culture - Preliminary Blood 01/27/24 14:45 Blood Culture - Preliminary Blood Assessment and Plan Assessment: Assessment: Acute hypoxemic respiratory failure due to acute exacerbation of asthma Paroxysmal atrial fibrillation with RVR, currently rate controlled Atrial flutter typical s/p ablation History of colon cancer in remission, chemotherapy in 2008 and right colectomy Hypertension Plan: Lasix 40 mg Mucinex 1200 mg Mycostatin powder and oral suspension Pulmicort 1 mg inhalation Perforomist 20 mcg inhalation Eliquis 5 mg p.o. twice daily Lasix 40 mg p.o. daily Metoprolol 50 mg p.o. daily Protonix 40mg Spent 20 minute with the patient Time with Patient: Less than 30
[2024-01-29] MEDS: NYSTATIN 100,000 UNIT/ML SUSP 500,000 UNIT/5 ML CUP PO SCH (12:42)
--- NOTE | 2024-01-29 14:25 | P.PN ---
Subjective Progress Note Date: 01/29/24 Consult reason: atrial fibrillation (With RVR) History of present illness: This is a 63-year-old male patient of Dr. Connor with past medical history of t ypical atrial flutter status post ablation, paroxysmal atrial fibrillation, right bundle branch block, history of colon cancer now in remission, asthma. We have been asked to evaluate the patient for A-fib with RVR. Patient is seen today in the emergency center waiting for bed on the cardiac stepdown unit. Patient states that he has had problems with shortness of breath as well as exacerbations and probably should have been in the hospital multiple times but has been resistant to coming into the hospital. His main concern is shortness of breath which is better now. No chest pain. Patient was started on heparin drip and Cardizem drip. His heart rate is controlled at 96, blood pressure 1 31/84. He remains in atrial fibrillation. EKG: Atrial fibrillation at 140 bpm. Patient is currently in atrial fibrillation with ventricular rate of 90s. Chest x-ray: No acute process. COPD. Laboratory studies: Troponin negative x 1 Home cardiac medications: Eliquis 2.5 mg twice daily, Lasix 40 mg daily, metoprolol succinate 25 mg daily, potassium chloride 20 mEq daily. Echocardiogram from 2012 reveals normal LV size and function. Trace mitral regurgitation, mild tricuspid regurgitation. Cardiolite stress test performed in 2012 was nondiagnostic secondary to baseline EKG abnormality. Normal myocardial perfusion imaging with fixed inferior wall defect and normal gated SPECT images consistent with soft tissue attenuation. No evidence of stress induced ischemia. 01/28 Patient is seen today on the cardiac stepdown unit. Yesterday we had increased the metoprolol succinate to 50 mg daily. Heart rate continues to be elevated in the low 100s, [id number], blood pressure 114/75, pulse ox 99% on room air. TSH 0.26 and free T4 normal at 1.77. Echocardiogram is pending. Physical examination: Gen: This is a 63-year-old male in no acute distress VS: reviewed HEENT: Head is atraumatic, normocephalic. Pupils equal, round. Sclerae is anicteric. NECK: Supple. No JVD. LUNGS: Clear to auscultation. No wheezes or rhonchi. No intercostal retractions. HEART: Irregular rate and rhythm. No murmur. ABDOMEN: Soft No tenderness. EXTREMITIES: No pedal edema. No calf tenderness. NEUROLOGICAL: Patient is awake, alert and oriented x3. Assessment: Paroxysmal atrial fibrillation presenting with RVR, currently rate controlled Asthma Atrial flutter typical status post ablation History of colon cancer in remission Plan: Continue patient's home cardiac medications Continue patient on Eliquis at 5 mg twice daily Increase frequency of metoprolol succinate 50 mg daily to twice daily Obtain 2-D echocardiogram and Doppler study to assess cardiac structure and function Further recommendations to follow based upon clinical course Nurse practitioner note has been reviewed, I agree with documented findings and plan of care. Patient was seen and examined. Objective - Vital Signs Vital signs: Vital Signs Temp 98.5 F 01/29/24 08:00 Pulse 123 H 01/29/24 08:47 Resp 18 01/29/24 08:47 BP 131/68 01/29/24 08:00 Pulse Ox 95 01/29/24 08:31 FiO2 21 01/29/24 03:18 Intake & Output 01/28/24 01/29/24 01/29/24 18:59 06:59 18:59 Intake Total 750 0 358 Balance 750 0 358 Weight 102.058 kg 97.1 kg Intake: IV 0 0 Invasive Line 1 0 0 Oral 750 358 Other: Voiding Method Toilet Toilet Toilet # Voids 1 2 - Labs CBC & Chem 7: 01/27/24 14:36 01/27/24 14:36 Labs: Abnormal Lab Results - Last 24 Hours (Table) 01/28/24 01/28/24 01/29/24 Range/Units 16:43 20:06 06:01 POC Glucose (mg/dL) 142 H 162 H 133 H (70-110) mg/dL Microbiology - Last 24 Hours (Table) 01/27/24 15:00 Blood Culture - Preliminary Blood 01/27/24 14:45 Blood Culture - Preliminary Blood
--- NOTE | 2024-01-29 15:40 | CA ---
Transthoracic Echo Report Name: Niall Kessler Age: 63 Gender: M : 1960 Exam Date: 01/29/2024 09:21 Exam Location: [place] [facility] Ht (in): 70 Wt (lb): 225 Ordering Physician: Carola Park Attending/Referring Phys: [id number], Xavier Charging Operator Minda Noel RDCS Procedure CPT: Indications: LVF Cardiac Hx: Technical Quality: Technically difficult study Contrast 1: Definity Total Dose (mL): 2 Contrast 2: Total Dose (mL): MEASUREMENTS (Male / Female) Normal Values 2D ECHO LV Diastolic Diameter PLAX 5.0 cm 4.2 - 5.9 / 3.9 - 5.3 cm LV Systolic Diameter PLAX 3.2 cm IVS Diastolic Thickness 1.2 cm 0.6 - 1.0 / 0.6 - 0.9 cm LVPW Diastolic Thickness 1.3 cm 0.6 - 1.0 / 0.6 - 0.9 cm LV Relative Wall Thickness 0.5 LVOT Diameter 2.5 cm LV Diastolic Volume MOD BP 123.5 cm??? 67 - 155 / 56 - 104 cm??? LV Systolic Volume MOD BP 45.5 cm??? 22 - 58 / 19 - 49 cm??? LV Ejection Fraction MOD BP 63.2 % >= 55 % LV Cardiac Index MOD BP 3941.4 cm???/min???m??? LV Diastolic Volume MOD 4C 126.4 cm??? LV Systolic Volume MOD 4C 45.5 cm??? LV Ejection Fraction MOD 4C 64.0 % LV Cardiac Index MOD 4C 4086.3 cm???/min???m??? LV Diastolic Length 4C 8.4 cm LV Systolic Length 4C 7.0 cm LV Diastolic Volume MOD 2C 120.4 cm??? LV Systolic Volume MOD 2C 40.8 cm??? LV Ejection Fraction MOD 2C 66.1 % LV Cardiac Index MOD 2C 4020.4 cm???/min???m??? LV Diastolic Length 2C 8.5 cm LV Systolic Length 2C 6.2 cm LA Volume 86.1 cm??? 18 - 58 / 22 - 52 cm??? LA Volume Index 37.8 cm???/m??? 16 - 28 cm???/m??? Ascending Aorta Diameter 4.0 cm DOPPLER AV Peak Velocity 132.6 cm/s AV Peak Gradient 7.0 mmHg AV Mean Velocity 90.9 cm/s AV Mean Gradient 3.7 mmHg AV Velocity Time Integral 22.7 cm LVOT Peak Velocity 100.6 cm/s LVOT Peak Gradient 4.0 mmHg LVOT Velocity Time Integral 17.8 cm LVOT Stroke Volume 87.3 cm??? LVOT Stroke Volume Index 39.8 ml/m??? LVOT Cardiac Index 4410.1 cm???/min???m??? AV Area Cont Eq vti 3.8 cm??? AV Area Cont Eq pk 3.7 cm??? PV Peak Velocity 94.2 cm/s PV Peak Gradient 3.6 mmHg FINDINGS Left Ventricle Left ventricular ejection fraction is estimated at 60-65 %. Mildly increased septal wall thickness. Left ventricular cavity size normal. No obvious regional wall motion abnormalities. Right Ventricle Right ventricular dilatation with normal function. Unable to estimate the right ventricular systolic pressure. Right Atrium Moderate right atrial dilatation. Left Atrium Moderately increased left atrial volume. Mildly increased left atrial area. Mitral Valve Structurally normal mitral valve. No mitral stenosis, regurgitation or prolapse. Aortic Valve Trileaflet aortic valve. No aortic valve stenosis or regurgitation. Tricuspid Valve Structurally normal tricuspid valve. No tricuspid stenosis. Trace tricuspid regurgitation. Pulmonic Valve Pulmonic valve not well visualized. No pulmonic stenosis. No pulmonic regurgitation. Pericardium No pericardial effusion. Aorta Aortic annulus normal. Ascending aorta mildly enlarged. CONCLUSIONS Left ventricular ejection fraction 60-65% Mildly increased left ventricular wall thickness Mild to moderately dilated left atrium Trace tricuspid regurgitation No pericardial effusion Previewed by: Dr. Gregg Palomo DO (Electronically Signed) Final Date: 29 January 2024 15:39
[2024-01-29 16:46] LABS: Glucose,Whole Blood 114 mg/dL (70-110)
[2024-01-29 20:15] LABS: Glucose,Whole Blood 111 mg/dL (70-110)
[2024-01-29] MEDS: METOPROLOL SUCCINATE (ER) 50 MG TAB.ER.24H PO SCH (20:55)
[2024-01-29] MEDS: MORPHINE SULFATE 2 MG/ML SYRINGE IVP PRN (23:19)
[2024-01-30 06:14] LABS: Glucose,Whole Blood 120 mg/dL (70-110)
--- NOTE | 2024-01-30 09:36 | P.PN ---
Subjective Progress Note Date: 01/30/24 Consult reason: atrial fibrillation (With RVR) History of present illness: This is a 63-year-old male patient of Dr. Connor with past medical history of t ypical atrial flutter status post ablation, paroxysmal atrial fibrillation, right bundle branch block, history of colon cancer now in remission, asthma. We have been asked to evaluate the patient for A-fib with RVR. Patient is seen today in the emergency center waiting for bed on the cardiac stepdown unit. Patient states that he has had problems with shortness of breath as well as exacerbations and probably should have been in the hospital multiple times but has been resistant to coming into the hospital. His main concern is shortness of breath which is better now. No chest pain. Patient was started on heparin drip and Cardizem drip. His heart rate is controlled at 96, blood pressure 1 31/84. He remains in atrial fibrillation. EKG: Atrial fibrillation at 140 bpm. Patient is currently in atrial fibrillation with ventricular rate of 90s. Chest x-ray: No acute process. COPD. Laboratory studies: Troponin negative x 1 Home cardiac medications: Eliquis 2.5 mg twice daily, Lasix 40 mg daily, metoprolol succinate 25 mg daily, potassium chloride 20 mEq daily. Echocardiogram from 2012 reveals normal LV size and function. Trace mitral regurgitation, mild tricuspid regurgitation. Cardiolite stress test performed in 2012 was nondiagnostic secondary to baseline EKG abnormality. Normal myocardial perfusion imaging with fixed inferior wall defect and normal gated SPECT images consistent with soft tissue attenuation. No evidence of stress induced ischemia. 01/28 Patient is seen today on the cardiac stepdown unit. Yesterday we had increased the metoprolol succinate to 50 mg daily. Heart rate continues to be elevated in the low 100s, [id number], blood pressure 114/75, pulse ox 99% on room air. TSH 0.26 and free T4 normal at 1.77. Echocardiogram is pending. 01/29 Patient remains in atrial fibrillation in the 80s. Patient states that he mostly feels better but not completely back to normal. He states he had some trouble with the CPAP and he feels like his sinuses are normally blocked and it finally cleared. Discussed with the patient the need for follow-up with endocri nology to correct his abnormal thyroid testing. This can be arranged by his PCP. Echocardiogram reveals EF of 60 to 65%. Mildly increased left ventricular wall thickness. Mild to moderate dilated left atrium. Trace tricuspid regurgitation. No pericardial effusion. Echocardiogram results have been reviewed with the patient. Physical examination: Gen: This is a 63-year-old male in no acute distress VS: reviewed HEENT: Head is atraumatic, normocephalic. Pupils equal, round. Sclerae is anicteric. NECK: Supple. No JVD. LUNGS: Clear to auscultation. No wheezes or rhonchi. No intercostal retr actions. HEART: Irregular rate and rhythm. No murmur. ABDOMEN: Soft No tenderness. EXTREMITIES: No pedal edema. No calf tenderness. NEUROLOGICAL: Patient is awake, alert and oriented x3. Assessment: Paroxysmal atrial fibrillation presenting with RVR, currently rate controlled Asthma Atrial flutter typical status post ablation History of colon cancer in remission Hypothyroidism which is contributing to atrial fibrillation Plan: Continue patient's home cardiac medications Continue patient on Eliquis at 5 mg twice daily Continue the increased frequency of metoprolol succinate 50 mg daily to twice daily No medication changes made today At the time of discharge, patient will follow-up with Dr. Connor in 1 week. Nurse practitioner note has been reviewed, I agree with documented findings and plan of care. Patient was seen and examined. Objective - Vital Signs Vital signs: Vital Signs Temp 97.4 F L 01/29/24 20:45 Pulse 84 01/30/24 03:50 Resp 20 01/30/24 03:50 BP 131/95 01/30/24 03:50 Pulse Ox 95 01/30/24 03:50 FiO2 21 01/30/24 03:44 Intake & Output 01/29/24 01/30/24 01/30/24 18:59 06:59 18:59 Intake Total 189 Balance 189 Weight 98.4 kg Intake: Oral 1897 Other: Voiding Method Toilet Toilet # Voids 2 - Labs CBC & Chem 7: 01/27/24 14:36 01/27/24 14:36 Labs: Abnormal Lab Results - Last 24 Hours (Table) 01/29/24 01/29/24 01/29/24 Range/Units 11:43 16:42 20:14 POC Glucose (mg/dL) 123 H 114 H 111 H (70-110) mg/dL 01/30/24 Range/Units 06:12 POC Glucose (mg/dL) 120 H (70-110) mg/dL Microbiology - Last 24 Hours (Table) 01/27/24 15:00 Blood Culture - Preliminary Blood 01/27/24 14:45 Blood Culture - Preliminary Blood
[2024-01-30] MEDS: BENZOCAINE/MENTHOL LOZENG 1 EACH LOZENGE MUCOUS MEM PRN (11:21)
--- NOTE | 2024-01-30 11:49 | P.PN ---
Subjective Progress Note Date: 01/30/24 Principal diagnosis: This is a 63 year old male patient with past medical history of paroxysmal atrial fibrillation with a rapid ventricular rate, atrial flutter s/p ablation, right bundle branch block, asthma, colon cancer now in remission with chemotherapy in 2008 and a right colectomy, GERD, hypertension, sleep apnea, gout, right hydrocele that was removed. He presented to the ED yesterday(01/27/24) complaining of difficulty breathing and getting short of breath even walking to the bathroom. He is currently on 2 L of oxygen and is feeling better now. Patient states has a history of asthma. He was managed with Trelegy 200mcg, Ventolin and albuterol 50mcg. Patient complains of increased cough recently. He was started on heparin drip and a Cardizem drip 5mg/hr. He denies chest pain, palpitation or fever. He has a past medical history of GERD but denies any abdominal pain, nausea, vomiting or diarrhea today. Denies history of smoking. His hemoglobin is 16.4, WBC 12.2, platelets 192, sodium 140, potassium 4.1, BUN 17, creatinine 1.81. His chest x-ray is normal. He is hemodynamically stable. Progress note 01/29/2024. Patient was evaluated today and is feeling much better. He is able to get up and go to the bathroom without getting short of breath. His O2 sat is 98 on room air. Does complain of cough and dark green sticky phlegm production. He also complains of burning in the throat and his tongue appears a little white. Hence he has been given nystatin swish and swallow. He is also put on Mucinex 1200 mg, Mycostatin powder and oral suspension. He is currently on apixaban 5 mg, budesonide 1 mg, formoterol 20 mcg, furosemide 40 mg and metoprolol 50 mg. He denies any chest pain, fever, chills, abdominal pain, nausea, vomiting and diarrhea. He is hemodynamically stable. Progress note 01/30/2024 Patient was evaluated today and is feeling a lot better. His O2 sat is 97 on room air. He does complain of persistent dry cough and burning in the throat. He mentions the nystatin powder and suspension helps with that. He does feel like he is at his non flare-up baseline. He denies any chest pain, fever and chills. He is currently on Eliquis 5 mg, budesonide 1 mg, metoprolol 50 mg, Mucinex 100 mg, nystatin powder and oral suspension. He is hemodynamically stable. Objective - Vital Signs Vital signs: Vital Signs Temp 97.6 F 01/30/24 08:00 Pulse 92 01/30/24 08:55 Resp 18 01/30/24 08:55 BP 132/84 01/30/24 08:00 Pulse Ox 97 01/30/24 08:34 FiO2 21 01/30/24 03:44 Intake & Output 01/29/24 01/30/24 01/30/24 18:59 06:59 18:59 Intake Total 1897 1140 Balance 1897 1140 Weight 98.4 kg Intake: Oral 1897 1140 Other: Voiding Method Toilet Toilet Toilet # Voids 2 2 - Exam General: Alert 63-year-old male, well-developed and well-nourished. Patient is nontoxic and well-hydrated and is in no acute distress. Head: Normocephalic HEENT: Neck is soft and supple. Moist mucous membrane. Whitish tongue. Eyes: Sclerae were anicteric and conjunctivae were pink and moist. Pupils are round and equally reacting to light. Neck: No masses, no JVD Pulmonary: Patient has expiratory wheezing. Cardiovascular: Normal S1-S2, no S3 gallop, no murmur. Abdomen: Soft and nontender, no hepatosplenomegaly, no guarding or rigidity Skin: Skin is clear with no lesions or rashes. Neurologic: Patient is alert and oriented x 3 Musculoskeletal: Normal extremities Spine: No scoliosis or deformity - Labs CBC & Chem 7: 01/27/24 14:36 01/27/24 14:36 Labs: Abnormal Lab Results - Last 24 Hours (Table) 01/29/24 01/29/24 01/29/24 Range/Units 11:43 16:42 20:14 POC Glucose (mg/dL) 123 H 114 H 111 H (70-110) mg/dL 01/30/24 Range/Units 06:12 POC Glucose (mg/dL) 120 H (70-110) mg/dL Microbiology - Last 24 Hours (Table) 01/27/24 15:00 Blood Culture - Preliminary Blood 01/27/24 14:45 Blood Culture - Preliminary Blood Assessment and Plan Assessment: Acute hypoxemic respiratory failure due to acute exacerbation of asthma Paroxysmal atrial fibrillation with RVR, currently rate controlled Atrial flutter typical s/p ablation History of colon cancer in remission, chemotherapy in 2008 and right colectomy Hypertension Plan: Mucinex 1200 mg Mycostatin powder and oral suspension Pulmicort 1 mg inhalation Perforomist 20 mcg inhalation Eliquis 5 mg p.o. twice daily Metoprolol 50 mg p.o. daily Protonix 40mg Spent 20 minute with the patient Time with Patient: Less than 30
[2024-01-30 11:53] LABS: Glucose,Whole Blood 139 mg/dL (70-110)
--- NOTE | 2024-01-30 14:10 | PN ---
PROGRESS NOTE DATE OF SERVICE: 01/29/2024 CHIEF COMPLAINT: Shortness of breath and chronic cough. HISTORY OF PRESENT ILLNESS: This gentleman is stable and is being followed both by Cardiology and pulmonology. He remains in atrial fibrillation which is chronic. PHYSICAL EXAMINATION: CHEST: clear. CARDIAC: Reveals atrial fibrillation. He continues to cough very hard and incessantly without bringing up any sputum. IMPRESSION: 1. Reactive airway disease. 2. Chronic and severe cough (?). 3. Atrial fibrillation. PLAN: Progress activity and continue to monitor his heart rhythm and wait for any further recommendations from cardiology or pulmonology. MMODL / IJN: [id number] /
[2024-01-30 15:28] VITALS: BP 116/71; TEMP 97.9
[2024-01-30 16:03] VITALS: RESP 18
[2024-01-30 16:21] VITALS: PULSE 90
--- NOTE | 2024-01-31 02:40 | DS ---
DISCHARGE SUMMARY CHIEF COMPLAINT: Shortness of breath and cough. HISTORY OF PRESENT ILLNESS AND PHYSICAL EXAMINATION: Details of this man's history and physical can be found in the initial workup. LABORATORY STUDIES: While he is in the hospital, he had laboratory studies, details of which can be found in the laboratory section of his chart. COURSE IN THE HOSPITAL: After admission, he was placed on bedrest and started on intravenous fluids. He was seen by Cardiology. He did not have congestive heart failure. He was also seen by pulmonology. He had a nonproductive harsh cough. Cardiology placed him on apixaban 5 mg twice a day because of his now-persistent atrial fibrillation. He was stable and doing well and it was felt that he could be discharged on the . He will follow up in several days. He will be kept on the Aricept. FINAL DIAGNOSES: 1. Reactive airways disease. 2. Chronic cough. 3. Atrial fibrillation. 4. History of carcinoma of colon. OPERATIONS: None. CONSULTATIONS: Pulmonology and Cardiology, he is improved. MMODL / IJN: [id number] /
[2024-01-31] MEDS ORDERED: predniSONE 10 MG TAB PO SCH (09:00)
== END 2024-01-30 16:33 | disposition home or self-care (01) | DRG 201 ==
LOC: EC 14:07 → 3SCARD 16:01
PROVIDERS: ADMIT Family Medicine; ATTEND Family Medicine
DX: I48.19 Other persistent atrial fibrillation (principal); I48.3 Typical atrial flutter; J96.01 Acute respiratory failure with hypoxia; J45.901 Unspecified asthma with (acute) exacerbation; I10 Essential (primary) hypertension; G47.30 Sleep apnea, unspecified; J44.9 Chronic obstructive pulmonary disease, unspecified; K21.9 Gastro-esophageal reflux disease without esophagitis; Z79.890 Hormone replacement therapy; E03.9 Hypothyroidism, unspecified; J45.902 Unspecified asthma with status asthmaticus; Z92.21 Personal history of antineoplastic chemotherapy; Z85.038 Personal history of other malignant neoplasm of large intestine; Z79.899 Other long term (current) drug therapy; Z79.01 Long term (current) use of anticoagulants
CPT/HCPCS: 36415; 71046; 80053; 83605; 83735; 83880; 84145; 84439; 84443; 84484; 85025; 85610; 85730; 87040; 87070; 87205; 93005; 93306; 94640; 94660; 94760; 96365; 96366; 96367; 96368; 96375; 96376; 99291

== ENCOUNTER 2024-02-18 01:05 | Inpatient (IN) | payer OTHER ==
[2024-02-18] MEDS ORDERED: methylPREDNISolone SOD SUCCI 125 MG/2 ML VIAL ONE (22:13)
[2024-02-18] MEDS ORDERED: MAGNESIUM SULFATE-D5W PMX 100 ML IVPB ONE (22:14)
[2024-02-19] MEDS ORDERED: guaiFENesin SYRUP 100MG/5ML 200 MG/10 ML CUP ONE ×2 (01:10→01:14)
[2024-02-19] MEDS ORDERED: methylPREDNISolone SOD SUCCI 40 MG/ML 1 ML VIAL ONE (10:00)
[2024-02-19] MEDS ORDERED: METOPROLOL SUCCINATE (ER) 50 MG TAB.ER.24H PO ONE (10:01)
[2024-02-19] MEDS ORDERED: APIXABAN 5 MG TAB ONE (10:02)
[2024-02-19] MEDS ORDERED: HYDROcodone/APAP 10-325MG 1 EACH TAB ONE ×3 (11:36→22:00)
[2024-02-19] MEDS ORDERED: methylPREDNISolone SOD SUCCI 125 MG/2 ML VIAL ONE (18:33)
[2024-02-20] MEDS ORDERED: methylPREDNISolone SOD SUCCI 125 MG/2 ML VIAL ONE (03:46)
[2024-02-20] MEDS ORDERED: HYDROcodone/APAP 10-325MG 1 EACH TAB ONE ×4 (03:51→21:10)
[2024-02-20] MEDS ORDERED: APIXABAN 5 MG TAB ONE ×2 (09:45→21:11)
[2024-02-20] MEDS ORDERED: METOPROLOL TARTRATE 50 MG TAB ONE (09:45)
[2024-02-20] MEDS ORDERED: methylPREDNISolone SOD SUCCI 40 MG/ML 1 ML VIAL ONE ×2 (09:45→16:59)
[2024-02-20] MEDS ORDERED: guaiFENesin 600 MG TABLET.ER PO ONE ×2 (10:02→17:00)
[2024-02-20] MEDS ORDERED: DILTIAZEM ORAL 30 MG TAB ONE ×2 (11:17→17:00)
[2024-02-20] MEDS ORDERED: PANTOPRAZOLE 40 MG TABLET PO ONE (21:10)
[2024-02-21] MEDS ORDERED: methylPREDNISolone SOD SUCCI 40 MG/ML 1 ML VIAL ONE ×2 (02:51→09:44)
[2024-02-21] MEDS ORDERED: DILTIAZEM ORAL 30 MG TAB ONE ×3 (02:52→18:12)
[2024-02-21] MEDS ORDERED: guaiFENesin 600 MG TABLET.ER PO ONE ×2 (09:44→21:49)
[2024-02-21] MEDS ORDERED: HYDROcodone/APAP 10-325MG 1 EACH TAB ONE ×3 (09:44→21:49)
[2024-02-21] MEDS ORDERED: APIXABAN 5 MG TAB ONE ×2 (09:45→21:49)
[2024-02-21] MEDS ORDERED: METOPROLOL SUCCINATE (ER) 50 MG TAB.ER.24H PO ONE (09:45)
[2024-02-21] MEDS ORDERED: IPRATROPIUM-ALBUTEROL 3 ML NEB ONE (15:39)
[2024-02-21] MEDS ORDERED: PANTOPRAZOLE 40 MG TABLET PO ONE (21:49)
[2024-02-21] MEDS ORDERED: SYMBICORT 160-4.5 MCG INHALER INHALATION ONE (23:59)
[2024-02-22] MEDS ORDERED: DILTIAZEM ORAL 30 MG TAB ONE ×2 (02:51→13:31)
[2024-02-22] MEDS ORDERED: methylPREDNISolone SOD SUCCI 125 MG/2 ML VIAL ONE ×2 (02:51→09:32)
[2024-02-22] MEDS ORDERED: IPRATROPIUM-ALBUTEROL 3 ML NEB ONE (07:52)
[2024-02-22] MEDS ORDERED: APIXABAN 5 MG TAB ONE (09:32)
[2024-02-22] MEDS ORDERED: HYDROcodone/APAP 10-325MG 1 EACH TAB ONE ×3 (09:32→17:27)
[2024-02-22] MEDS ORDERED: guaiFENesin 600 MG TABLET.ER PO ONE ×2 (09:32→17:27)
[2024-02-22] MEDS ORDERED: METOPROLOL TARTRATE 50 MG TAB ONE (09:32)
--- NOTE | 2024-04-02 08:04 | XR ---
Patient Niall Kessler ID [id number] Order # EXAMINATION TYPE: XR chest 2V DATE OF EXAM: 03/02/2024 COMPARISON: No comparison available on downtime PACS. INDICATION: Asthma attack difficulty breathing TECHNIQUE: Frontal and lateral views of the chest are obtained. FINDINGS: The heart size is normal. The pulmonary vasculature is normal. The lungs are clear. Some hyperinflation is present associated with asthma. IMPRESSION: 1. No acute pulmonary process graphically apparent. 2. Hyperinflation which can be associated with asthma..
== END 2024-02-22 17:54 | disposition home or self-care (01) | DRG 141 ==
LOC: UNDOADMIN 01:05 → DISRECOVER 01:05 → UNDODISIN 02-22 17:54
PROVIDERS: ADMIT Hospitalist; ATTEND Hospitalist
DX: J45.901 Unspecified asthma with (acute) exacerbation (principal); I48.91 Unspecified atrial fibrillation; K21.9 Gastro-esophageal reflux disease without esophagitis; I50.9 Heart failure, unspecified; E83.42 Hypomagnesemia; G47.33 Obstructive sleep apnea (adult) (pediatric); Z85.038 Personal history of other malignant neoplasm of large intestine; Z79.01 Long term (current) use of anticoagulants; Z86.79 Personal history of other diseases of the circulatory system
CPT/HCPCS: 71046; 80053; 83735; 83880; 84484; 85025; 94640; 94660; 99285

== ENCOUNTER 2024-05-20 10:57 | Day surgery (SDC) | payer OTHER ==
[2024-05-16 11:14] VITALS: BMI 33.7
[~2024-05-20 10:57] MED LIST changes: -LACTATED RINGERS 1,000 ML IV SCH; +LIDOCAINE 1% (10MG/ML) FOR IV START INTRADERMA PRN; -LIDOCAINE 1% 20 ML VIAL (10MG/ML) FOR IV START INTRADERMA PRN; +ONDANSETRON 4 MG/2 ML VIAL IVP PRN
[2024-05-20] MEDS: IV FLUID CONTINUATION 1,000 ML IV ONE (11:25)
[2024-05-20] MEDS: LACTATED RINGERS 1,000 ML IV SCH (11:30)
[2024-05-20] MEDS ORDERED: PROPOFOL 10 MG/ML 20 ML VIAL IV ONE (11:31)
[2024-05-20] MEDS ORDERED: LIDOCAINE 1% INJ 10MG/ML (20 ML MDV) ONE (11:31)
[2024-05-20 11:34] VITALS: TEMP 97.6
--- NOTE | 2024-05-20 11:36 | P.GSHP ---
History of Present Illness H&P Date: 05/20/24 Chief Complaint: Colon cancer screening 64-year-old male here for colonoscopy. Patient has history of right-sided colon cancer 15 years ago. Last colonoscopy 5 years ago. Patient thinks he has had episodes of diverticulitis over the years. No bowel complaints currently. Past Medical History Past Medical History: Atrial Fibrillation, Asthma, Cancer, Heart Failure, COPD, GERD/Reflux, GI Bleed, Hypertension, Osteoarthritis (OA), Sleep Apnea/CPAP/BIPAP Additional Past Medical History / Comment(s): Recent issue with isrrael for past 3 months.Chronic bronchitis.COLON CANCER HX, chemo 2009. hx gout, neur opathy keshia feet, back pain DDD, USES CPAP, "right bundle branch block." "Over active thyroid." CHFx2. History of Any Multi-Drug Resistant Organisms: None Reported Past Surgical History: Bowel Resection, Cardiac Ablation, Orthopedic Surgery Additional Past Surgical History / Comment(s): RT COLECTOMY, RT HYDROCELE REMOVED. PLASTIC SX NOSE, ORIF LT ANKLE with screw, cardiac ablation 2011. Cardioversion Apr 17, 2024. Cyst removed from back. hx PORT A CATH, now removed, Cortisone shots in bi lat shoulders Past Anesthesia/Blood Transfusion Reactions: No Reported Reaction, Motion Sickness Additional Past Anesthesia/Blood Transfusion Reaction / Comment(s): Had blood transfusion 2008- no reaction. Smoking Status: Never smoker - Past Family History Father Family Medical History: Cancer, Prostate Disorder Additional Family Medical History / Comment(s): Prostate, basal cell and melanoma, Laukemia Mother Family Medical History: Cancer Additional Family Medical History / Comment(s): colon Medications and Allergies Home Medications Medication Instructions Recorded Confirmed Type Hydrocodone/Acetaminophen [[place] 1 tab PO QID 06/05/16 05/16/24 History 10-325] Metoprolol Succinate (ER) [Toprol 125 mg PO QAM 06/05/16 05/16/24 History XL] allopurinoL [Allopurinol] 300 mg PO QAM 06/05/16 05/16/24 History Albuterol Sulfate [Ventolin HFA] 1 - 2 puff INHALATION RT-QID PRN 01/27/24 05/16/24 History Ergocalciferol (Vitamin D2) 1,250 mcg PO QMONTHLY 01/27/24 05/16/24 History [Drisdol (50,000 Iu)] Fluticasone/Umeclidin/Vilanter 1 puff INHALATION RT-DAILY 01/27/24 05/16/24 History [Trelegy Ellipta 200-62.5-25] Furosemide [Lasix] 20 mg PO QAM 01/27/24 05/16/24 History Triamcinolone 0.1% Cream [Kenalog 1 applicatio TOPICAL HS PRN 01/27/24 05/16/24 History 0.1% Cream] Apixaban [Eliquis] 5 mg PO BID #60 tab 01/30/24 05/16/24 Rx Fluticasone Nasal [place] [Flonase 1 spray NASAL QAM PRN 05/16/24 05/16/24 History Nasal [place]] Ipratropium-Albuterol Nebulize 3 ml INHALATION QID 05/16/24 05/16/24 History [Duoneb 0.5 mg-3 mg/3 ml Soln] Metoprolol Succinate (ER) [Toprol 50 mg PO HS 05/16/24 05/16/24 History Xl] Montelukast Sodium 10 mg PO HS 05/16/24 05/16/24 History Protonix(Unknown Dose) 1 dose PO QAM 05/16/24 05/16/24 History Spironolactone [Aldactone] 50 mg PO 1200 05/16/24 05/16/24 History diazePAM [Valium] 5 mg PO HS PRN 05/16/24 05/16/24 History guaiFENesin [Mucinex] 1,200 mg PO Q12HR PRN 05/16/24 05/16/24 History predniSONE 10 mg PO QAM 05/16/24 05/16/24 History Allergies Allergy/AdvReac Type Severity Reaction Status Date / Time Environmental Allergy Asthma Uncoded 05/20/24 11:26 attack/watery eyes/sneeze Surgical - Exam Vital Signs Temp Pulse BP Pulse Ox 97.6 F 105 H 153/91 96 05/20/24 11:25 05/20/24 11:25 05/20/24 11:25 05/20/24 11:25 Physical exam: General: Well-developed, well-nourished HEENT: Normocephalic, sclerae nonicteric Abdomen: Nontender, nondistended Extremities: No edema Neuro: Alert and oriented Assessment and Plan (1) Colon cancer screening Narrative/Plan: Will proceed with colonoscopy at this time. Current Visit: Yes Status: Acute Code(s): Z12.11 - ENCOUNTER FOR SCREENING FOR MALIGNANT NEOPLASM OF COLON SNOMED Code(s): 362525818
[2024-05-20 11:46] LABS: Glucose,Whole Blood 83 mg/dL (70-110)
--- NOTE | 2024-05-20 11:50 | P.PCN ---
Date of Procedure: 05/20/24 Procedure(s) Performed: PREOPERATIVE DIAGNOSIS: History of colon cancer, screening POSTOPERATIVE DIAGNOSIS: Transverse colon polyp x 3, diverticulosis PROCEDURE: Colonoscopy with snare polypectomy ANESTHESIA: MAC SURGEON: Deven Barth M.D. SPECIMENS: Colon polyps ENDOSCOPIC PROCEDURE: The patient was placed on the endoscopy table in the left decubitus position. The Olympus colonoscope was inserted into the anus and passed under direct visualization to the ileocolonic anastomosis. From that point the scope was slowly withdrawn inspecting all surfaces carefully. There were 3 polyps seen in the transverse colon. These were all removed using the snare with cautery technique. The remainder of the transverse descending sigmoid and rectum appeared normal with the exception of diverticulosis. Digital rectal examination was normal. The patient was taken to the recovery room in stable condition per anesthesia guidelines. RECOMMENDATIONS: Await biopsy results. Anticipate repeat colonoscopy 3 to 5 years.
[2024-05-20 11:56] VITALS: RESP 14
[2024-05-20 12:10] VITALS: BP 103/80; PULSE 92
== END 2024-05-20 12:56 | disposition home or self-care (01) ==
LOC: ORWHC2ENDO 10:57
PROVIDERS: ATTEND Surgery
DX: Z12.11 Encounter for screening for malignant neoplasm of colon (principal); D12.3 Benign neoplasm of transverse colon; K63.5 Polyp of colon; K57.30 Diverticulosis of large intestine without perforation or abscess without bleeding; Z85.038 Personal history of other malignant neoplasm of large intestine; M10.9 Gout, unspecified; M19.90 Unspecified osteoarthritis, unspecified site; J44.9 Chronic obstructive pulmonary disease, unspecified; G47.33 Obstructive sleep apnea (adult) (pediatric); I48.91 Unspecified atrial fibrillation; I10 Essential (primary) hypertension; G62.9 Polyneuropathy, unspecified; Z79.01 Long term (current) use of anticoagulants; Z79.51 Long term (current) use of inhaled steroids; Z79.899 Other long term (current) drug therapy; Z92.21 Personal history of antineoplastic chemotherapy; Z92.3 Personal history of irradiation
CPT/HCPCS: 45385; J2003; J2704; 88305

== ENCOUNTER → 2025-01-07 | Outpatient (CLI) | payer OTHER ==
--- NOTE | 2025-01-08 08:04 | US ---
EXAMINATION TYPE: US kidneys/renal and bladder DATE OF EXAM: 01/07/2025 COMPARISON: 12/24/2023 CLINICAL INDICATION: Male, 64 years old with history of N18.2 CHRONIC KIDNEY DISEASE, STAGE 2 (MILD); TECHNIQUE: Grayscale imaging of the bilateral kidneys and urinary bladder: FINDINGS: EXAM MEASUREMENTS: Right Kidney: 12.1x6.6x5.6 Left Kidney: 12.9x5.5x4.4cm Purler notes: slightly limited exam due to overlying bowel & pt body habitus Right Kidney: No hydronephrosis or masses seen Left Kidney: No hydronephrosis or masses seen Bladder: wnl Bilateral Jets seen: Yes IMPRESSION: No hydronephrosis. [facility], Workstation: [id number], 01/08/2025 8:01 AM
== END | disposition home or self-care (01) ==
LOC: RADUSWWP 16:00
PROVIDERS: ATTEND Family Medicine
DX: N18.2 Chronic kidney disease, stage 2 (mild) (principal)
CPT/HCPCS: 76770

== ENCOUNTER → 2025-01-22 | Outpatient (CLI) | payer OTHER ==
[2025-01-22 15:04] LABS: Bilirubin,Urine Negative (Negative); Blood,Urine Negative (Negative); Color,Urine Colorless; Glucose,Urine (UA) Negative (Negative); Ketones,Urine Negative (Negative); Leukocyte Esterase,Urine Negative (Negative); Nitrite,Urine Negative (Negative); PH, Urine 6.0 (5.0-8.0); Protein,Urine Negative (Negative); Specific Gravity,Urine 1.012 (1.001-1.035); Urobilinogen,Urine <2.0 mg/dL (<2.0)
[2025-01-22 16:03] LABS: Protein/Creatinine Ratio,Urine 0.139
[2025-01-22 19:49] LABS: BUN/Creat Ratio 11.11 Ratio (12.00-20.00); Blood Urea Nitrogen 10.0 mg/dL (9.0-27.0); Glucose 117 mg/dL (70-110); Magnesium 1.9 mg/dL (1.5-2.4)
[2025-01-22 19:50] LABS: ALT 18 U/L (10-49); AST 17 U/L (14-35); Albumin 4.3 g/dL (3.8-4.9); Albumin/Globulin Ratio 2.87 Ratio (1.60-3.17); Alkaline Phosphatase 69 U/L (41-126); Anion Gap 12.00 mmol/L (4.00-12.00); Calcium 8.9 mg/dL (8.7-10.3); Carbon Dioxide 28.0 mmol/L (21.6-31.8); Chloride 102 mmol/L (96-109); Globulin 1.5 g/dL (1.6-3.3); Potassium 3.7 mmol/L (3.5-5.5); Sodium 142 mmol/L (135-145); Total Protein 5.8 g/dL (6.2-8.2)
[2025-01-22 20:07] LABS: Basophils # (A) 0.05 X 10*3/uL (0.00-0.10); Basophils % (A) 0.5 %; Eosinophils # (A) 0.21 X 10*3/uL (0.04-0.35); Eosinophils % (A) 2.3 %; HCT 41.0 % (39.6-50.0); HGB 13.5 g/dL (13.0-17.0); Immature Grans, Automated 0.70 %; Lymphocytes # (A) 1.24 X 10*3/uL (0.90-5.00); Lymphocytes % (A) 13.5 %; MCH 33.1 pg (27.0-32.0); MCHC 32.9 g/dL (32.0-37.0); MCV 100.5 FL (80.0-97.0); Monocytes # (A) 0.55 X 10*3/uL (0.20-1.00); Monocytes % (A) 6.0 %; NRBC Per 100 WBC 0 X 10*3/uL (0.00-0.01); Neutrophils # (A) 7.05 X 10*3/uL (1.80-7.70); Neutrophils % (A) 77.0 %; Platelet Count 211 X 10*3/uL (140-440); RBC 4.08 X 10*6/uL (4.40-5.60); RDW 14.4 % (11.5-14.5); WBC 9.16 X 10*3/uL (4.50-10.00)
== END | disposition home or self-care (01) ==
LOC: LABWHC1 12:49
PROVIDERS: ATTEND Internal Medicine Nephrology
DX: R94.4 Abnormal results of kidney function studies (principal)
CPT/HCPCS: 36415; 80053; 81003; 82570; 83735; 84100; 84156; 85025